=== PATIENT | male | born 1985 | race Two or more races ===

== ENCOUNTER 2025-02-03 14:33 | Outpatient (AMB) | payer BC, SELFPAY ==
--- NOTE | 2025-02-03 14:35 | MHC.PC.OV ---
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 Machine Operator Language: Maltese Accompanied by: Allergies No Known Allergies Allergy (Verified 02/03/25 14:49) Medication List - Last Reconciled 02/03/25 by АНДРЕЙ Martinez No Known Home Meds Tobacco use date assessed: 02/03/25 Dental Screening Dental Screen Date: 02/03/25 Did you have a dental visit in the last 12 months?: Yes Did you have a dental problem in the last 6 months where you did not have access to dental care?: No Was dental information given to patient?: Patient has dentist HPI Establish Care HPI Details Previous PCP: Reports that he never had a doctor before Last visit: 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 The patient reports experiencing heart palpitations, particularly after consuming caffeine or sugary foods. These episodes are described as feeling like the heart is skipping beats, followed by a rapid heartbeat. The patient has not experienced these symptoms without the consumption of caffeine or sugar. The patient also reports symptoms consistent with gastroesophageal reflux disease (GERD), including a burning sensation in the chest and coughing triggered by certain foods. Tenderness was noted upon palpation of the epigastric area, which is attributed to heartburn. The patient has a past medical history of appendectomy for appendicitis and denies any other significant medical history. There is no history of medication use or allergies. Family history is significant for breast cancer in the mother and Alzheimer's disease in the maternal grandfather. The patient does not smoke or consume alcohol and reports minimal physical activity. [facility] History History of appendectomy Family History (Updated 02/03/25 @ 20:48 by АНДРЕЙ Martinez) Mother Cancer Dementia Father Cancer Maternal Grandfather Alzheimer's dementia Maternal Grandmother Family history of breast cancer Social History Household Members: Spouse Housing: House Alcohol intake: never Patient Tobacco Use Status: Never used Tobacco e-Cigarette/Vaping Use: Never Used service: No Current occupational status: employed Current occupation: [employer] Cognitive needs: No Hearing needs: No Vision needs: Yes Questionnaire PHQ-9 Over the last 2 weeks, how often have you been bothered by any of the following problems? 1. Little interest or pleasure in doing things: not at all 2. Feeling down, depressed, or hopeless: not at all 3. Trouble falling or staying asleep, or sleeping too much: not at all 4. Feeling tired or having little energy: not at all 5. Poor appetite or overeating: not at all 6. Feeling bad about yourself - or that you are a failure or have let yourself or your family down: not at all 7. Trouble concentrating on things, such as reading the newspaper or watching television: not at all 8. Moving or speaking so slowly that other people could have noticed. Or the opposite - being so fidgety or restless that you have been moving around a lot more than usual: not at all 9. Thoughts that you would be better off or of hurting yourself in some way: not at all Total score: 0 Depression Screening Interpretation: Negative Depression Screening Done: Yes 64380 - PHQ-9 Billing: Yes Source: Developed by Drs. Vicente Arthur, Kimberley Francis, Fer Link and colleagues, with an educational velasquez from [employer]. Thrive Questionnaire Date Thrive assessed: 02/03/25 I am a: Patient What is your living situation today?: I have a steady place to live Within the past 12 months, did the food you bought not last and you didn't have the money to get more?: Never true Within the past 12 months, did you worry whether your food would run out before you got money to buy more?: Never true Do you have trouble paying for medicines?: No Do you have trouble getting transportation to medical appointments?: No Do you have trouble paying your heating and electricity bill?: No Do you have trouble taking care of your child, family member or friend?: No Do you have trouble with day-to-day activities such as bathing, preparing meals, shopping, managing finances, etc.?: No Are you currently unemployed and looking for a job?: No Are you interested in more education?: No Please select the resources that you would like help with: None Currently or been in a relationship where the following occur: No concerns reported THRIVE Score: 0 AUDIT C Alcohol Use Questionnaire (AUDIT-C) 1. How often do you have a drink containing alcohol?: Never Total Score: 0 ISELA-7 AMB Questionnaire ISELA-7 Date ISELA - 7 assessed: 02/03/25 Feeling nervous, anxious, or on edge: 0 = Not at all Not being able to stop or control worryin = Not at all Worrying too much about different things: 0 = Not at all Trouble relaxin = Not at all Being so restless that it is hard to sit still: 0 = Not at all Becoming easily annoyed or irritable: 0 = Not at all Feeling afraid as if something awful might happen: 0 = Not at all Total ISELA-7 score (0-4 normal; 5-9 mild; 10-14 moderate; 15-21 severe): 0 Source: Developed by Drs. Vicente Arthur, Kimberley Francis, Fer Link and colleagues, with an educational velasquez from [employer]. ISELA-7 Assessment Billing ISELA-7 Assessment Tool: ISELA-7 Assessment 45834 Review of Systems Const Denies headache(s) Eyes Denies loss of vision ENT Denies vertigo, Denies dizziness, Denies headache(s) and Denies sore throat Card Denies chest pain, Reports rapid heart rate, Denies leg edema, Denies lightheadedness and Reports dyspnea on exertion Resp Reports cough (subacute ), Denies hemoptysis, Reports dyspnea on exertion and Denies wheezing GI Denies abdominal pain, Denies melena, Denies constipation, Reports heartburn, Denies diarrhea and Denies vomiting Denies dysuria, Denies urinary frequency and Denies urinary urgency Musc Denies arthralgias, Denies joint swelling, Denies numbness and Denies tingling Neuro Denies Abnormal speech present, Denies behavioral changes, Denies vertigo, Denies dizziness, Denies headache(s), Denies loss of vision, Denies memory loss, Denies numbness and Denies tingling Psych Denies anxiety, Denies behavioral changes, Denies depression, Denies memory loss and Denies panic attacks Manuel/Lymph Denies easy bleeding and Denies easy bruising Aller/Immun Denies wheezing Physical exam (Primary Care) Vital Signs: Last Vital Signs Temp 97.3 F 02/03/25 14:36 Pulse 67 02/03/25 14:36 Resp 18 02/03/25 14:36 BP 103/76 02/03/25 14:36 Pulse Ox 97 02/03/25 14:36 Oxygen Delivery Method Room Air 02/03/25 14:36 BMI result Body Mass Index 26.0 Tobacco/Smoking Status: Tobacco use Status Tobacco use date assessed 02/03/25 02/03/25 14:46 Patient Tobacco Use Status Never used Tobacco 02/03/25 14:46 e-Cigarette/Vaping Use Never Used 02/03/25 14:46 PHQ-9: PHQ-9 Score PHQ-9: Total score 0 02/03/25 14:54 Depression Screening Interpretation: Negative Thrive Assessment: Date of Thrive Assessment Date Thrive assessed 02/03/25 02/03/25 14:46 Currently or been in a relationship where the following occur: No concerns reported Const General: healthy appearing, no acute distress, alert and awake Nutritional Appearance: well nourished Orientation/consciousness: oriented to person, oriented to place and oriented to time HENMT Ears: TM's normal bilaterally General nose exam: Normal nasal mucous membranes and turbinates present Eyes Conjunctivae: conjunctivae normal Sclerae: sclerae normal Pupils: Equal, round and reactive pupils present Neck Neck: Yes no lymphadenopathy and Yes no JVD Thyroid: Thyroid normal Carotids: no bruits Resp Effort & Inspection: normal respiratory effort and not tachypneic Auscultation: no crackles, no rales, no rhonchi and no wheezes Cardio Rate: regular rate Rhythm: regular rhythm Heart sounds: no murmurs and normal S1 and S2 GI Palpation (GI): Soft to palpation, nontender, no hepatomegaly and no splenomegaly Auscultation: normal bowel sounds Skin General skin exam: no rashes or lesions noted and dry skin Neuro General: oriented to person, oriented to place and oriented to time Cranial nerves: Yes Equal, round and reactive pupils present Speech: No Abnormal speech present Gait exam (Neuro): Normal gait present Motor exam (neuro): no tremor noted Extrem Right upper extremity: full ROM Left upper extremity: full ROM Right lower extremity: full ROM; no edema Left lower extremity: full ROM; no edema Psych Mental Status: mental status grossly normal Speech and movement: Normal speech and movement present Affect: normal affect Attitude: cooperative Thought process: Normal thought process present Coding Level of Care Code New Pt Level 4 (17724) Diagnoses Palpitations with regular cardiac rhythm R00.2 SOB (shortness of breath) on exertion R06.02 Heartburn R12 Epigastric abdominal tenderness without rebound tenderness R10.816 Presence of rebound: absent Additional Codes PHQ-9 - 91753 - PHQ-9 Billing: Yes ([id number]) ISELA-7 Assessment Billing - ISELA-7 Assessment Tool: ISELA-7 Assessment 55034 ([id number]) Time Spent (min) 41 Assessment & Plan Assessment & Plan (1) Palpitations with regular cardiac rhythm: Code(s): R00.2 - Palpitations Category: Medical (2) SOB (shortness of breath) on exertion: Code(s): R06.02 - Shortness of breath Category: Medical (3) Heartburn: Code(s): R12 - Heartburn Category: Medical (4) Epigastric abdominal tenderness: Code(s): R10.816 - Epigastric abdominal tenderness Category: Medical Qualifiers: Presence of rebound: absent Qualified Code(s): R10.816 - Epigastric abdominal tenderness Plan The patient will undergo blood work and an EKG to assess cardiovascular health and identify any underlying issues contributing to the reported palpitations. A Holter monitor will be used to capture any arrhythmias during normal daily activities, particularly after caffeine or sugar intake. For the management of gastroesophageal reflux disease GERD), the patient is advised to start omeprazole 40 mg daily, to be taken in the morning before meals to reduce acid production and alleviate symptoms. The patient is also advised to avoid known triggers such as caffeine, acidic foods, and alcohol to prevent exacerbation of symptoms. Follow-up is recommended in seven weeks to review the results of the diagnostic tests and assess the effectiveness of the treatment plan. Patient was informed and verbally consented to the use of an ambient scribe for clinic note documentation during this visit. Orders: Orders B Type Natriuretic Peptide Today R00.2 - Palpitations, R10.816 - Epigastric abdominal tenderness, R12 - Heartburn, Z00.00 - Encounter for general adult medical examination without abnormal findings Comprehensive [place]. Panel Fast Today R00.2 - Palpitations, R10.816 - Epigastric abdominal tenderness, R12 - Heartburn, Z00.00 - Encounter for general adult medical examination without abnormal findings TSH reflex Free T4 Today R00.2 - Palpitations, R10.816 - Epigastric abdominal tenderness, R12 - Heartburn, Z00.00 - Encounter for general adult medical examination without abnormal findings ECG 12 lead EKG Today R06.02 - Shortness of breath Complete Blood Count Auto Diff Today R00.2 - Palpitations, R10.816 - Epigastric abdominal tenderness, R12 - Heartburn, Z00.00 - Encounter for general adult medical examination without abnormal findings Lipid Panel Today R00.2 - Palpitations, R10.816 - Epigastric abdominal tenderness, R12 - Heartburn, Z00.00 - Encounter for general adult medical examination without abnormal findings UA CC w/rflx Micro + Cult Today R00.2 - Palpitations, R10.816 - Epigastric abdominal tenderness, R12 - Heartburn, Z00.00 - Encounter for general adult medical examination without abnormal findings Vitamin D 25-OH Total Today R00.2 - Palpitations, R10.816 - Epigastric abdominal tenderness, R12 - Heartburn, Z00.00 - Encounter for general adult medical examination without abnormal findings ECG 7 day holter monitor Today R00.2 - Palpitations Medications: New omeprazole 40 mg PO DAILY 60 caps 2RF
[2025-02-03 14:36] VITALS: BP 103/76; PULSE 67; RESP 18; TEMP 36.3; O2SAT 97; BMI 26.0
== END 2025-02-03 15:21 | disposition home or self-care (01) ==
LOC: HO.HMCH 14:33
DX: R00.2 Palpitations (principal); R06.02 Shortness of breath; R12 Heartburn; R10.816 Epigastric abdominal tenderness

== ENCOUNTER → 2025-02-03 14:33 | Outpatient (BNVA) | payer BC, SELFPAY | DX: R00.2 Palpitations (principal); K21.9 Gastro-esophageal reflux disease without esophagitis; R06.02 Shortness of breath; R12 Heartburn; R10.816 Epigastric abdominal tenderness | CPT/HCPCS: 96127 ==